=== PATIENT | male | born 1975 | race Caucasian/White ===

== ENCOUNTER 2021-10-22 07:13 | Day surgery (SDC) | payer OTHER ==
[~2021-10-22] VITALS: Ht 182.9 cm; Wt 113.4 kg
[~2021-10-22 07:13] MED LIST: ALLEGRA ALLERG180 MG PO; FENOFIBRATE145 M1 PO; HYDROCHLOROTHIA25 M1 PO; LEXAPRO 10 MG T10 M2 PO; PROTONIX40 M2 PO; VALSARTAN320 MG PO; VITAMIN D3125 MCG PO; VYVANSE50 MG PO
[2021-10-22 08:39] VITALS: BP 136/91
[2021-10-22 09:12] LABS: CALCIUM 8.7 mg/dL (8.5-10.1); CREATININE 1.1 mg/dL (0.7-1.3)
[2021-10-22] MEDS ORDERED: NORCO5 PO (11:10)
[2021-10-22 11:13] VITALS: BP 136/91
== END 2021-10-22 11:30 | disposition home or self-care (01) ==
LOC: EDBD → TBA 07:13 → OR 07:13
PROVIDERS: ATTEND Podiatrist Foot & Ankle Surgery
DX: S92.511A Displaced fracture of proximal phalanx of right lesser toe(s), initial encounter for closed fracture (principal); I10 Essential (primary) hypertension; F17.210 Nicotine dependence, cigarettes, uncomplicated; G47.30 Sleep apnea, unspecified; K21.9 Gastro-esophageal reflux disease without esophagitis; Z98.890 Other specified postprocedural states; Z20.822 Contact with and (suspected) exposure to COVID-19; Z79.899 Other long term (current) drug therapy; Z88.0 Allergy status to penicillin; X58.XXXA Exposure to other specified factors, initial encounter; Y93.89 Activity, other specified; Y92.89 Other specified places as the place of occurrence of the external cause; Y99.8 Other external cause status
CPT/HCPCS: 50010; 50101; 50386; 51281; 51291; 57091; 57178; 62110; 62850; 70005